=== PATIENT | female | born 1980 | race Caucasian/White ===

== ENCOUNTER → 2018-11-07 | Outpatient (CLI) | payer BC, OTHER ==
[~2018-11-07] MED LIST: BIOT25005 PO; CETI10CA PO; FAMO10TA31 PO; FEXO180T15 PO; MULT-658 PO; NITR100C56 PO; PHEN-416 PO; SIME125C PO; [UNRECOGNIZED DRUG - CODE] PO; berberine PO
[2018-11-07 12:44] LABS: MICROSCOPIC NOT IND
[2018-11-07 12:45] LABS: BASOPHILS # (AUTO) 0.08 x10^3/uL (0-0.1); BASOPHILS % (AUTO) 1 % (0-1); EOSINOPHILS # (AUTO) 0.15 x10^3/uL (0-0.4); EOSINOPHILS % (AUTO) 3 % (1-7); LYMPHOCYTES % (AUTO) 30 % (22-44); MD NO; MEAN CORPUSCULAR HEMOGLOBIN 28.8 pg (27.0-34.8); MEAN CORPUSCULAR HGB CONC 32.5 g/dL (32.4-35.8); MEAN CORPUSCULAR VOLUME 88.8 fL (80-100); MEAN PLATELET VOLUME 7.4 fL (7.4-10.4); MONOCYTES # (AUTO) 0.36 x10^3/uL (0.2-0.8); MONOCYTES % (AUTO) 7 % (2-9); NEUTROPHILS # (AUTO) 3.22 x10^3/uL (1.8-6.8); NEUTROPHILS % (AUTO) 60 % (42-75); PLATELET COUNT 326 x10^3/uL (130-400); RED BLOOD COUNT 4.91 x10^6/uL (3.82-5.3); RED CELL DISTRIBUTION WIDTH 13.8 % (9.6-15.2)
[2018-11-07 12:47] LABS: CULTURE INDICATED? NO
[2018-11-07 12:59] LABS: ALANINE AMINOTRANSFERASE 32 U/L (12-78); ALBUMIN 4.1 g/dL (3.4-5.0); ANION GAP 5 mmol/L (5-15); CALCIUM 8.9 mg/dL (8.5-10.1); CHLORIDE 107 mmol/L (98-107)
[2018-11-07 13:03] LABS: ALKALINE PHOSPHATASE 77 U/L (45-117); BILIRUBIN,TOTAL 0.5 mg/dL (0.2-1.0); TOTAL PROTEIN 8.4 g/dL (6.4-8.2)
== END | disposition home or self-care (01) ==
LOC: STAR 11:40
PROVIDERS: ATTEND Obstetrics & Gynecology
DX: N92.0 Excessive and frequent menstruation with regular cycle (principal); N93.0 Postcoital and contact bleeding
CPT/HCPCS: 36415; 80053; 81003; 84703; 85025

== ENCOUNTER 2018-11-14 05:20 | Day surgery (SDC) | payer BC, OTHER ==
[~2018-11-14] VITALS: Ht 162.6 cm; Wt 86.3 kg
[2018-11-14 05:52] VITALS: BP 139/93
[2018-11-14] MEDS ORDERED: LACTATED RINGERS 1,000 ML IV SCH (05:55)
[2018-11-14] MEDS ORDERED: MIDAZOLAM 1 MG/ML, 2ML ONE (06:23)
[2018-11-14] MEDS ORDERED: FENTANYL PF 100 MCG/2ML ONE (06:23)
[2018-11-14 06:31] LABS: HCG UR SG 1.015 (1.003-1.030)
[2018-11-14] MEDS ORDERED: BUPIVACAINE/PF 0.25% ONE (06:44)
[2018-11-14] MEDS ORDERED: VASOPRESSIN 20 UNIT/ML, 1ML ONE (06:45)
[2018-11-14] MEDS ORDERED: LORazepam 2 MG/ML, 1ML IVPush PRN (07:00)
[2018-11-14] MEDS ORDERED: METOCLOPRAMIDE 5 MG/ML, 2ML IV PRN (07:00)
[2018-11-14] MEDS ORDERED: HYDROmorphone 2 MG/ML, 1ML IVPush PRN (07:00)
[2018-11-14] MEDS ORDERED: MEPERIDINE/PF 25MG/0.5ML IVPush PRN (07:00)
[2018-11-14] MEDS ORDERED: ACETAMINOPHEN 325 MG TABLET PO PRN (07:00)
[2018-11-14] MEDS ORDERED: FENTANYL PF 100 MCG/2ML IV PRN (07:00)
[2018-11-14] MEDS ORDERED: ONDANSETRON 2MG/ML, 2ML ONE (15:48)
[2018-11-14] MEDS ORDERED: DEXAMETHASONE 4 MG/ML, 1ML ONE (15:48)
[2018-11-14] MEDS ORDERED: PROPOFOL 10 MG/ML, 20ML ONE (15:48)
[2018-11-14] MEDS ORDERED: KETOROLAC 30 MG/1 ML ONE (15:48)
== END 2018-11-14 11:05 | disposition home or self-care (01) ==
LOC: OUT 05:20
PROVIDERS: ATTEND Obstetrics & Gynecology
DX: N92.0 Excessive and frequent menstruation with regular cycle (principal); N93.0 Postcoital and contact bleeding; N71.9 Inflammatory disease of uterus, unspecified; Z72.89 Other problems related to lifestyle; Z98.890 Other specified postprocedural states
CPT/HCPCS: 58558; 81025; 88305; J1100; J1885; J2250; J2405; J2704; J3010; J3490; J7120